=== PATIENT | male | born 1955 | race Caucasian/White ===

== ENCOUNTER 2021-06-06 15:36 | Emergency (ER) | payer MEDICAID ==
[~2021-06-06] VITALS: Ht 177.8 cm; Wt 158.6 kg
[2021-06-06 17:28] LABS: EOSINOPHILS % (AUTO) 0.5 % (0-6); HEMOGLOBIN 12.4 g/dl (14.0-17.9); MEAN PLATELET VOLUME 7.8 FL (7.4-10.4); NEUTROPHILS # (AUTO) 4.2 X10'3 (1.8-7.7); RED CELL DISTRIBUTION WIDTH 13.8 % (11.5-14.5); WHITE BLOOD COUNT 5.5 X10'3 (4.5-11.0)
[2021-06-06 17:30] LABS: BASOPHILS % (AUTO) 0.4 % (0-1); HEMATOCRIT 36.8 % (42.0-52.0); LYMPHOCYTES # (AUTO) 0.6 X10'3 (1.1-4.8); LYMPHOCYTES % (AUTO) 10.8 % (21-51); MEAN CORPUSCULAR HEMOGLOBIN 31.3 PG (27.0-31.0); MEAN CORPUSCULAR HGB CONC 33.8 g/dL (33.0-36.5); MEAN CORPUSCULAR VOLUME 92.6 FL (78-98); MONOCYTES # (AUTO) 0.6 X10'3 (0-0.9); MONOCYTES % (AUTO) 11.1 % (2-12); NEUTROPHILS % (AUTO) 77.2 % (42-75); PLATELET COUNT 131 X10'3 (140-440); RED BLOOD COUNT 3.97 X10'6 (4.70-6.10)
[2021-06-06 17:46] LABS: ALANINE AMINOTRANSFERASE 11 U/L (12-78); ALBUMIN 2.8 G/DL (3.4-5.0); ALBUMIN/GLOBULIN RATIO 0.6 (1.1-1.5); ALKALINE PHOSPHATASE 104 IU/L (46-116); ANION GAP 7 (8-16); ASPARTATE AMINO TRANSFERASE 30 U/L (10-37); BILIRUBIN,TOTAL 1.5 MG/DL (0.1-1.0); BLOOD UREA NITROGEN 11 MG/DL (7-18); BUN/CREATININE RATIO 8.8 (5.4-32.0); CALCIUM 8.7 MG/DL (8.5-10.1); CHLORIDE 104 MMOL/L (99-107); CREATININE 1.25 MG/DL (0.60-1.10); GLUCOSE 119 MG/DL (70-104); POTASSIUM 3.8 MMOL/L (3.5-5.1); SODIUM 139 MMOL/L (135-145); TOTAL CARBON DIOXIDE 28.1 MMOL/L (24-32); TOTAL PROTEIN 7.7 G/DL (6.4-8.2); eGFR 58 ML/MIN
[2021-06-07 01:20] VITALS: BP 155/78
== END 2021-06-07 01:22 | disposition home or self-care (01) ==
LOC: ER 15:36
DX: M79.604 Pain in right leg (principal); R60.1 Generalized edema; I87.8 Other specified disorders of veins; Z68.43 Body mass index [BMI] 50.0-59.9, adult
CPT/HCPCS: 36415; 73590; 80053; 84145; 85025; 85379; 93971; 99285

== ENCOUNTER 2023-02-26 22:59 | Emergency (ER) | payer MEDICAID, MEDICARE ==
[~2023-02-26] VITALS: Ht 177.8 cm; Wt 160.0 kg
[2023-02-26] MEDS ORDERED: HYDR-3965 PO (23:47)
[2023-02-26 23:58] VITALS: BP 169/72; PULSE 47; RESP 16; TEMP 98.2; O2SAT 93
[2023-02-27] MEDS ORDERED: HYDR-3965 PO (00:08)
== END 2023-02-27 00:36 | disposition home or self-care (01) ==
LOC: ER 23:00
DX: S42.391A Other fracture of shaft of right humerus, initial encounter for closed fracture (principal); W18.39XA Other fall on same level, initial encounter; Y93.89 Activity, other specified; Y92.89 Other specified places as the place of occurrence of the external cause; Y99.8 Other external cause status
CPT/HCPCS: 73030; 99283; A4565

== ENCOUNTER 2023-07-25 12:34 | Emergency (ER) | payer MEDICAID ==
[~2023-07-25] VITALS: Ht 177.8 cm; Wt 168.6 kg
[2023-07-25 15:25] LABS: EOSINOPHILS # (AUTO) 0.2 X10'3 (0-0.9); HEMOGLOBIN 11.9 g/dl (14.0-17.9); LYMPHOCYTES # (AUTO) 0.9 X10'3 (1.1-4.8); MEAN PLATELET VOLUME 8.3 FL (7.4-10.4); MONOCYTES # (AUTO) 0.5 X10'3 (0-0.9); MONOCYTES % (AUTO) 9.2 % (2-12); NEUTROPHILS # (AUTO) 3.4 X10'3 (1.8-7.7); WHITE BLOOD COUNT 4.9 X10'3 (4.5-11.0)
[2023-07-25 15:26] LABS: BASOPHILS % (AUTO) 0.5 % (0-1); EOSINOPHILS % (AUTO) 3.1 % (0-6); HEMATOCRIT 35.9 % (42.0-52.0); LYMPHOCYTES % (AUTO) 18.2 % (21-51); MEAN CORPUSCULAR HEMOGLOBIN 30.7 PG (27.0-31.0); MEAN CORPUSCULAR HGB CONC 33.2 g/dL (33.0-36.5); MEAN CORPUSCULAR VOLUME 92.3 FL (78-98); PLATELET COUNT 68 X10'3 (140-440); RED BLOOD COUNT 3.89 X10'6 (4.70-6.10); RED CELL DISTRIBUTION WIDTH 14.4 % (11.5-14.5)
[2023-07-25 15:35] LABS: APTT 26 SECONDS (22-32); INR 1.1 INR; PROTHROMBIN TIME 11.6 SECONDS (9.0-12.0)
[2023-07-25 15:39] LABS: ALANINE AMINOTRANSFERASE 10 U/L (12-78); ALBUMIN 3.1 G/DL (3.4-5.0); ALBUMIN/GLOBULIN RATIO 0.7 (1.1-1.5); ALKALINE PHOSPHATASE 81 IU/L (46-116); ANION GAP 2 (8-16); ASPARTATE AMINO TRANSFERASE 24 U/L (10-37); BLOOD UREA NITROGEN 16 MG/DL (7-18); BUN/CREATININE RATIO 13.6 (10.0-20.0); CALCIUM 8.4 MG/DL (8.5-10.1); CHLORIDE 104 MMOL/L (99-107); CREATININE 1.18 MG/DL (0.60-1.10); GLUCOSE 117 MG/DL (70-104); POTASSIUM 3.8 MMOL/L (3.5-5.1); SODIUM 139 MMOL/L (135-145); TOTAL CARBON DIOXIDE 32.9 MMOL/L (24-32); TOTAL PROTEIN 7.4 G/DL (6.4-8.2); eCRCL 62 ML/MIN; eGFR 61 ML/MIN
[2023-07-25 15:46] LABS: C-REACTIVE PROTEIN 1.21 MG/DL (0.0-0.5); PRO BRAIN NATRIURETIC PEPTIDE 924 PG/ML (0-125)
[2023-07-25] MEDS ORDERED: SULF1TAB48 PO (17:15)
[2023-07-25] MEDS ORDERED: HYDR-3965 PO (17:15)
[2023-07-25 17:33] VITALS: BP 155/88; PULSE 62; RESP 16; TEMP 98.7; O2SAT 95
== END 2023-07-25 17:34 | disposition home or self-care (01) ==
LOC: ER 12:34
DX: S90.922A Unspecified superficial injury of left foot, initial encounter (principal); X58.XXXA Exposure to other specified factors, initial encounter; Y93.89 Activity, other specified; Y92.89 Other specified places as the place of occurrence of the external cause; Y99.8 Other external cause status
CPT/HCPCS: 36415; 73620; 73700; 80053; 83605; 83880; 84145; 85025; 85610; 85651; 85730; 86140; 87040; 99284; A6223; A6446

== ENCOUNTER 2023-08-03 17:41 | Emergency (ER) | payer MEDICAID ==
[~2023-08-03] VITALS: Ht 177.8 cm; Wt 168.6 kg
[~2023-08-03 17:41] MED LIST: SULF1TAB48 PO
[2023-08-03 19:16] LABS: BASOPHILS % (AUTO) 0.7 % (0-1); EOSINOPHILS # (AUTO) 0.2 X10'3 (0-0.9); EOSINOPHILS % (AUTO) 3.9 % (0-6); LYMPHOCYTES # (AUTO) 0.9 X10'3 (1.1-4.8); LYMPHOCYTES % (AUTO) 18.1 % (21-51); MEAN CORPUSCULAR HGB CONC 33.3 g/dL (33.0-36.5); MEAN CORPUSCULAR VOLUME 92.9 FL (78-98); MEAN PLATELET VOLUME 8.5 FL (7.4-10.4); MONOCYTES # (AUTO) 0.5 X10'3 (0-0.9); MONOCYTES % (AUTO) 10.4 % (2-12); NEUTROPHILS # (AUTO) 3.3 X10'3 (1.8-7.7); NEUTROPHILS % (AUTO) 66.9 % (42-75); PLATELET COUNT 74 X10'3 (140-440); RED BLOOD COUNT 3.87 X10'6 (4.70-6.10); RED CELL DISTRIBUTION WIDTH 14.3 % (11.5-14.5); WHITE BLOOD COUNT 4.9 X10'3 (4.5-11.0)
[2023-08-03 19:32] LABS: ALANINE AMINOTRANSFERASE 9 U/L (12-78); ALBUMIN 3.2 G/DL (3.4-5.0); ALBUMIN/GLOBULIN RATIO 0.7 (1.1-1.5); ALKALINE PHOSPHATASE 94 IU/L (46-116); ANION GAP 4 (8-16); ASPARTATE AMINO TRANSFERASE 23 U/L (10-37); BILIRUBIN,TOTAL 1.4 MG/DL (0.1-1.0); BLOOD UREA NITROGEN 11 MG/DL (7-18); BUN/CREATININE RATIO 8.9 (10.0-20.0); C-REACTIVE PROTEIN 1.79 MG/DL (0.0-0.5); CALCIUM 8.1 MG/DL (8.5-10.1); CHLORIDE 103 MMOL/L (99-107); CREATININE 1.23 MG/DL (0.60-1.10); GLUCOSE 105 MG/DL (70-104); SODIUM 139 MMOL/L (135-145); TOTAL CARBON DIOXIDE 31.7 MMOL/L (24-32); TOTAL PROTEIN 7.5 G/DL (6.4-8.2); eCRCL 59 ML/MIN; eGFR 59 ML/MIN
[2023-08-03] MEDS ORDERED: DOXY-1 PO (20:32)
[2023-08-03 21:22] VITALS: BP 178/91; PULSE 61; RESP 16; TEMP 98.1; O2SAT 96
== END 2023-08-03 21:25 | disposition home or self-care (01) ==
LOC: ER 17:41
DX: L03.116 Cellulitis of left lower limb (principal); I10 Essential (primary) hypertension; Z79.2 Long term (current) use of antibiotics
CPT/HCPCS: 36415; 73630; 80053; 83605; 85025; 85651; 86140; 87040; 87070; 87077; 87186; 99284; A6258; A6446; A6449

== ENCOUNTER 2023-08-08 08:57 | Inpatient (IN) | payer MEDICAID ==
[~2023-08-08] VITALS: Ht 177.8 cm; Wt 168.6 kg
[~2023-08-08 08:57] MED LIST changes: +DOXY-1 PO; -SULF1TAB48 PO
[2023-08-08] MEDS ORDERED: iohexol 300mg/ml 100ml inj. ONE (10:03)
[2023-08-08 10:50] LABS: BASOPHILS % (AUTO) 0.6 % (0-1); EOSINOPHILS # (AUTO) 0.1 X10'3 (0-0.9); EOSINOPHILS % (AUTO) 3.5 % (0-6); HEMATOCRIT 39.5 % (42.0-52.0); HEMOGLOBIN 12.9 g/dl (14.0-17.9); LYMPHOCYTES # (AUTO) 0.4 X10'3 (1.1-4.8); LYMPHOCYTES % (AUTO) 10.1 % (21-51); MEAN CORPUSCULAR HEMOGLOBIN 30.4 PG (27.0-31.0); MEAN CORPUSCULAR HGB CONC 32.7 g/dL (33.0-36.5); MEAN CORPUSCULAR VOLUME 92.8 FL (78-98); MEAN PLATELET VOLUME 8.2 FL (7.4-10.4); MONOCYTES # (AUTO) 0.3 X10'3 (0-0.9); NEUTROPHILS # (AUTO) 3.2 X10'3 (1.8-7.7); NEUTROPHILS % (AUTO) 77.8 % (42-75); PLATELET COUNT 69 X10'3 (140-440); RED BLOOD COUNT 4.25 X10'6 (4.70-6.10); RED CELL DISTRIBUTION WIDTH 14.6 % (11.5-14.5); WHITE BLOOD COUNT 4.1 X10'3 (4.5-11.0)
[2023-08-08 10:57] LABS: ALBUMIN 3.4 G/DL (3.4-5.0); ANION GAP 7 (8-16); BLOOD UREA NITROGEN 13 MG/DL (7-18); BUN/CREATININE RATIO 10.5 (10.0-20.0); CALCIUM 8.9 MG/DL (8.5-10.1); CHLORIDE 102 MMOL/L (99-107); CREATININE 1.24 MG/DL (0.60-1.10); GLUCOSE 104 MG/DL (70-104); POTASSIUM 4.2 MMOL/L (3.5-5.1); SODIUM 140 MMOL/L (135-145); TOTAL CARBON DIOXIDE 31.3 MMOL/L (24-32); eCRCL 59 ML/MIN; eGFR 58 ML/MIN
[2023-08-08 11:09] LABS: BILIRUBIN,URINE NEGATIVE (Neg); CLARITY,URINE CLEAR (Clear); COLOR,URINE YELLOW (Yellow); GLUCOSE, URINE NEGATIVE (Neg); KETONES,URINE TRACE mg/dl (Neg); LEUKOCYTE ESTERASE ,URINE NEGATIVE (Neg); NITRITES, URINE NEGATIVE (Neg); OCCULT BLOOD,URINE NEGATIVE (Neg); PROTEIN,URINE NEGATIVE (Neg)
[2023-08-08 11:15] LABS: UA COLLECTION TYPE CLN CATCH MIDSTREAM
[2023-08-08 13:11] LABS: C-REACTIVE PROTEIN 1.49 MG/DL (0.0-0.5)
[2023-08-08] MEDS ORDERED: ondansetron/PF 4mg/2ml inj IV PRN (13:45)
[2023-08-08] MEDS ORDERED: potassium Cl 40MEQ/1/2NS 520ml 520 ML IV PRN (13:45)
[2023-08-08] MEDS ORDERED: magnesium 4gm in 100ml NS 100 ML IV PRN (13:45)
[2023-08-08] MEDS ORDERED: magnesium 2GM in 50ml NS 50 ML IV PRN (13:45)
[2023-08-08] MEDS ORDERED: potassium Cl 20 mEq SR tablet PO PRN ×2 (13:45)
[2023-08-08] MEDS ORDERED: magnesium Cl slow-release 64mg tablet PO PRN (13:45)
[2023-08-08] MEDS ORDERED: mag hydrox/Alum hydrox/simeth 30ml oral suspension PO PRN (13:45)
[2023-08-08] MEDS: vancomycin/NS 1 GM ADD-VANTAGE 250 ML IV SCH (15:50)
[2023-08-08 18:46] LABS: URINE AMPHETAMINE SCREEN NEGATIVE (Neg); URINE BARBITUATE SCREEN NEGATIVE (Neg); URINE BENZODIAZEPINES SCREEN NEGATIVE (Neg); URINE CANNABINOID SCREEN NEGATIVE (Neg); URINE COCAINE SCREEN NEGATIVE (Neg); URINE METHADONE SCREEN NEGATIVE (Neg); URINE OPIATE SCREEN POSITIVE (Neg); URINE PHENCYCLIDINE SCREEN NEGATIVE (Neg)
[2023-08-08 19:00] VITALS: RESP 14; O2SAT 93
[2023-08-08 20:00] VITALS: BP 155/75; PULSE 67; RESP 15; TEMP 98.5; O2SAT 93
[2023-08-08] MEDS: K and/or MAG REPLACEMENT MC SCH (20:00)
[2023-08-08] MEDS: heparin, porcine 5000 units/ml vial SQ SCH (20:00)
[2023-08-08 22:00] VITALS: BP 174/70; PULSE 62; RESP 20; TEMP 98; O2SAT 94
[2023-08-08] MEDS: amLODIPine 5mg tablet PO ONE (23:13)
[2023-08-09] MEDS: acetaminophen 325mg tablet PO PRN (02:24)
[2023-08-09 06:08] LABS: BASOPHILS % (AUTO) 0.6 % (0-1); EOSINOPHILS # (AUTO) 0.2 X10'3 (0-0.9); EOSINOPHILS % (AUTO) 3.8 % (0-6); HEMATOCRIT 37.2 % (42.0-52.0); HEMOGLOBIN 12.4 g/dl (14.0-17.9); LYMPHOCYTES # (AUTO) 0.8 X10'3 (1.1-4.8); LYMPHOCYTES % (AUTO) 17.6 % (21-51); MEAN CORPUSCULAR HEMOGLOBIN 30.6 PG (27.0-31.0); MEAN CORPUSCULAR HGB CONC 33.3 g/dL (33.0-36.5); MEAN CORPUSCULAR VOLUME 91.8 FL (78-98); MEAN PLATELET VOLUME 8.8 FL (7.4-10.4); MONOCYTES # (AUTO) 0.5 X10'3 (0-0.9); MONOCYTES % (AUTO) 10.3 % (2-12); NEUTROPHILS % (AUTO) 67.7 % (42-75); PLATELET COUNT 71 X10'3 (140-440); RED BLOOD COUNT 4.05 X10'6 (4.70-6.10); RED CELL DISTRIBUTION WIDTH 14.8 % (11.5-14.5); WHITE BLOOD COUNT 4.4 X10'3 (4.5-11.0)
[2023-08-09 06:40] LABS: ALBUMIN 3.1 G/DL (3.4-5.0); ANION GAP 8 (8-16); BLOOD UREA NITROGEN 11 MG/DL (7-18); BUN/CREATININE RATIO 9.6 (10.0-20.0); CALCIUM 8.8 MG/DL (8.5-10.1); CHLORIDE 105 MMOL/L (99-107); CHOL/HDL RATIO 2.4 (0.00-4.99); CHOLESTEROL 138 MG/DL (0-200); CREATININE 1.15 MG/DL (0.60-1.10); GLUCOSE 95 MG/DL (70-104); HDL CHOLESTEROL 58 MG/DL (35-60); LDL CHOLESTEROL 64 MG/DL (50-100); POTASSIUM 4.1 MMOL/L (3.5-5.1); SODIUM 141 MMOL/L (135-145); THYROID STIMULATING HORMONE 4.63 ulU/ml (0.34-4.50); TOTAL CARBON DIOXIDE 27.7 MMOL/L (24-32); TRIGLYCERIDES 62 MG/DL (20-135); eCRCL 63 ML/MIN; eGFR 63 ML/MIN
[2023-08-09 06:42] VITALS: BP 164/66; PULSE 65; RESP 22; TEMP 97.8; O2SAT 92
[2023-08-09 06:57] LABS: HEMOGLOBIN A1C 5.6 % (4.5-6.2)
[2023-08-09 08:00] VITALS: RESP 16
[2023-08-09] MEDS: furosemide 20MG tablet PO SCH (10:23)
[2023-08-09 12:19] VITALS: BP 164/74; PULSE 59; RESP 18; TEMP 97.2; O2SAT 93
[2023-08-09] MEDS: VANCOMYCIN LEVEL IV ONE (14:30)
[2023-08-09 18:50] VITALS: BP 167/62; PULSE 67; RESP 17; TEMP 97.2; O2SAT 95
[2023-08-09 22:00] VITALS: BP 115/79; PULSE 64; RESP 18; TEMP 97.8; O2SAT 91
[2023-08-10 06:00] VITALS: BP 133/76; PULSE 81; RESP 24; TEMP 98.2; O2SAT 93
[2023-08-10 06:13] LABS: BASOPHILS % (AUTO) 0.4 % (0-1); EOSINOPHILS # (AUTO) 0.2 X10'3 (0-0.9); HEMATOCRIT 36.5 % (42.0-52.0); HEMOGLOBIN 12.1 g/dl (14.0-17.9); LYMPHOCYTES # (AUTO) 0.8 X10'3 (1.1-4.8); LYMPHOCYTES % (AUTO) 18.6 % (21-51); MEAN CORPUSCULAR HEMOGLOBIN 30.7 PG (27.0-31.0); MEAN CORPUSCULAR HGB CONC 33.2 g/dL (33.0-36.5); MEAN CORPUSCULAR VOLUME 92.4 FL (78-98); MEAN PLATELET VOLUME 8.9 FL (7.4-10.4); MONOCYTES # (AUTO) 0.5 X10'3 (0-0.9); MONOCYTES % (AUTO) 10.6 % (2-12); NEUTROPHILS # (AUTO) 2.8 X10'3 (1.8-7.7); NEUTROPHILS % (AUTO) 65.4 % (42-75); PLATELET COUNT 65 X10'3 (140-440); RED BLOOD COUNT 3.95 X10'6 (4.70-6.10); RED CELL DISTRIBUTION WIDTH 14.8 % (11.5-14.5); WHITE BLOOD COUNT 4.4 X10'3 (4.5-11.0)
[2023-08-10 06:16] LABS: ANION GAP 7 (8-16); BLOOD UREA NITROGEN 9 MG/DL (7-18); BUN/CREATININE RATIO 7.4 (10.0-20.0); CALCIUM 8.9 MG/DL (8.5-10.1); CHLORIDE 105 MMOL/L (99-107); CREATININE 1.22 MG/DL (0.60-1.10); GLUCOSE 116 MG/DL (70-104); POTASSIUM 3.9 MMOL/L (3.5-5.1); SODIUM 143 MMOL/L (135-145); TOTAL CARBON DIOXIDE 31.2 MMOL/L (24-32); eCRCL 60 ML/MIN; eGFR 59 ML/MIN
[2023-08-10 08:00] VITALS: RESP 14
[2023-08-10 12:49] VITALS: BP 168/75; RESP 20; TEMP 97.8; O2SAT 93
[2023-08-10 18:30] VITALS: BP 190/77; PULSE 61; RESP 16; TEMP 98.9; O2SAT 98
[2023-08-10] MEDS: magnesium hydroxide 30ml (MOM) UD suspension PO PRN (18:55)
[2023-08-10 19:00] VITALS: RESP 16; O2SAT 98
[2023-08-10] MEDS ORDERED: LISI20TA28 PO (20:19)
[2023-08-10] MEDS: lisinopril 10 MG tablet PO ONE (20:36)
[2023-08-10 23:00] VITALS: BP 112/70; PULSE 100; RESP 20; TEMP 97.8; O2SAT 90
[2023-08-11 04:44] LABS: EOSINOPHILS # (AUTO) 0.2 X10'3 (0-0.9); EOSINOPHILS % (AUTO) 4.1 % (0-6); HEMOGLOBIN 11.8 g/dl (14.0-17.9); MEAN CORPUSCULAR HEMOGLOBIN 30.2 PG (27.0-31.0); RED CELL DISTRIBUTION WIDTH 15.1 % (11.5-14.5); WHITE BLOOD COUNT 5.3 X10'3 (4.5-11.0)
[2023-08-11 04:47] LABS: BASOPHILS % (AUTO) 0.7 % (0-1); HEMATOCRIT 36.3 % (42.0-52.0); LYMPHOCYTES % (AUTO) 18.8 % (21-51); MEAN CORPUSCULAR HGB CONC 32.6 g/dL (33.0-36.5); MEAN CORPUSCULAR VOLUME 92.7 FL (78-98); MEAN PLATELET VOLUME 8.4 FL (7.4-10.4); MONOCYTES # (AUTO) 0.5 X10'3 (0-0.9); MONOCYTES % (AUTO) 10.2 % (2-12); NEUTROPHILS # (AUTO) 3.5 X10'3 (1.8-7.7); NEUTROPHILS % (AUTO) 66.2 % (42-75); PLATELET COUNT 63 X10'3 (140-440); RED BLOOD COUNT 3.91 X10'6 (4.70-6.10)
[2023-08-11 04:54] LABS: ALBUMIN 2.9 G/DL (3.4-5.0); ANION GAP 5 (8-16); BLOOD UREA NITROGEN 11 MG/DL (7-18); BUN/CREATININE RATIO 9.5 (10.0-20.0); CALCIUM 8.6 MG/DL (8.5-10.1); CHLORIDE 105 MMOL/L (99-107); CREATININE 1.16 MG/DL (0.60-1.10); GLUCOSE 113 MG/DL (70-104); POTASSIUM 4.2 MMOL/L (3.5-5.1); SODIUM 142 MMOL/L (135-145); TOTAL CARBON DIOXIDE 32.5 MMOL/L (24-32); eCRCL 63 ML/MIN; eGFR 63 ML/MIN
[2023-08-11 06:00] VITALS: BP 123/66; PULSE 60; RESP 14; TEMP 98.9; O2SAT 87
[2023-08-11 07:00] VITALS: RESP 16; O2SAT 95
[2023-08-11] MEDS: lisinopril 10 MG tablet PO SCH (09:25)
[2023-08-11 10:00] VITALS: BP 158/70; PULSE 66; RESP 18; TEMP 98.3; O2SAT 90
[2023-08-11] MEDS ORDERED: LACT1CAP26 PO (12:28)
[2023-08-11] MEDS ORDERED: LINE600T14 PO (12:28)
[2023-08-11] MEDS ORDERED: ACET-1008 PO (12:28)
== END 2023-08-11 19:51 | disposition home or self-care (01) | DRG 383 ==
LOC: ER 08:57 → ED HOLD 13:43 → SUR 3N 19:00
PROVIDERS: ADMIT Family Medicine; ATTEND Family Medicine
DX: L03.116 Cellulitis of left lower limb (principal); D61.818 Other pancytopenia; L97.529 Non-pressure chronic ulcer of other part of left foot with unspecified severity; E66.2 Morbid (severe) obesity with alveolar hypoventilation; Z68.43 Body mass index [BMI] 50.0-59.9, adult; I10 Essential (primary) hypertension; B95.2 Enterococcus as the cause of diseases classified elsewhere
CPT/HCPCS: 36415; 71045; 73701; 80048; 80061; 80202; 80305; 81003; 83036; 83605; 83735; 84145; 84443; 85025; 85651; 86140; 87040; 87070; 87077; 87081; 87186; 93005; 93306; 97110; 97161; 97530; 99285; A4615; A6196; A6213; A6446; A6449; G0378; J3370; J3490; L3260; Q9967

== ENCOUNTER 2024-01-16 11:00 | Inpatient (IN) | payer MEDICAID, MEDICARE ==
[~2024-01-16] VITALS: Ht 172.7 cm; Wt 151.8 kg
[~2024-01-16 11:00] MED LIST changes: +ACET-1008 PO; -DOXY-1 PO; +LACT1CAP26 PO; +LINE600T14 PO; +LISI20TA28 PO; +piperacillin/tazo 4.5gm/100ml 100 ML IV SCH
[2024-01-16 11:55] LABS: BASOPHILS # (AUTO) 0.1 X10'3 (0-0.2); EOSINOPHILS # (AUTO) 0.1 X10'3 (0-0.9); HEMATOCRIT 41.3 % (42.0-52.0); HEMOGLOBIN 13.6 g/dl (14.0-17.9); LYMPHOCYTES # (AUTO) 0.8 X10'3 (1.1-4.8); LYMPHOCYTES % (AUTO) 8.2 % (21-51); MEAN CORPUSCULAR HEMOGLOBIN 31.1 PG (27.0-31.0); MEAN CORPUSCULAR VOLUME 94.2 FL (78-98); MEAN PLATELET VOLUME 9.3 FL (7.4-10.4); MONOCYTES # (AUTO) 0.4 X10'3 (0-0.9); MONOCYTES % (AUTO) 4.4 % (2-12); NEUTROPHILS # (AUTO) 8.5 X10'3 (1.8-7.7); NEUTROPHILS % (AUTO) 85.4 % (42-75); PLATELET COUNT 84 X10'3 (140-440); RED BLOOD COUNT 4.39 X10'6 (4.70-6.10); RED CELL DISTRIBUTION WIDTH 14.9 % (11.5-14.5); WHITE BLOOD COUNT 9.9 X10'3 (4.5-11.0)
[2024-01-16 12:09] LABS: ALANINE AMINOTRANSFERASE 15 U/L (12-78); ALBUMIN 3.4 G/DL (3.4-5.0); ALBUMIN/GLOBULIN RATIO 0.7 (1.1-1.5); ALKALINE PHOSPHATASE 92 IU/L (46-116); ANION GAP 5 (8-16); ASPARTATE AMINO TRANSFERASE 33 U/L (10-37); BILIRUBIN,TOTAL 2.5 MG/DL (0.1-1.0); BLOOD UREA NITROGEN 14 MG/DL (7-18); BUN/CREATININE RATIO 10.6 (10.0-20.0); CALCIUM 9.1 MG/DL (8.5-10.1); CHLORIDE 103 MMOL/L (99-107); CREATININE 1.32 MG/DL (0.60-1.10); GLUCOSE 128 MG/DL (70-104); LIPASE 44 U/L (16-77); POTASSIUM 3.8 MMOL/L (3.5-5.1); SODIUM 140 MMOL/L (135-145); TOTAL CARBON DIOXIDE 31.7 MMOL/L (24-32); TOTAL PROTEIN 8.4 G/DL (6.4-8.2); eCRCL 55 ML/MIN; eGFR 54 ML/MIN
[2024-01-16 13:43] LABS: BILIRUBIN,URINE NEGATIVE (Neg); CLARITY,URINE CLEAR (Clear); COLOR,URINE YELLOW (Yellow); GLUCOSE, URINE NEGATIVE (Neg); KETONES,URINE NEGATIVE (Neg); LEUKOCYTE ESTERASE ,URINE NEGATIVE (Neg); NITRITES, URINE NEGATIVE (Neg); OCCULT BLOOD,URINE NEGATIVE (Neg); PROTEIN,URINE TRACE mg/dl (Neg)
[2024-01-16 14:06] LABS: UA COLLECTION TYPE CLN CATCH MIDSTREAM
[2024-01-16 14:07] LABS: BACTERIA,URINE NONE SEEN /HPF (Neg); RBC,URINE 0-2 /HPF (0-2); WBC,URINE 0-4 /HPF (0-4)
[2024-01-16 14:08] LABS: MUCUS STRANDS NONE SEEN /LPF (Neg); SQUAMOUS EPITHELIAL CELL,UR FEW /LPF (FEW)
[2024-01-16 14:57] LABS: PRO BRAIN NATRIURETIC PEPTIDE 410 PG/ML (0-125)
[2024-01-16 15:19] LABS: BASOPHILS % (AUTO) 0.2 % (0-1); EOSINOPHILS % (AUTO) 0.1 % (0-6); HEMATOCRIT 39.2 % (42.0-52.0); HEMOGLOBIN 13.1 g/dl (14.0-17.9); LYMPHOCYTES # (AUTO) 0.4 X10'3 (1.1-4.8); LYMPHOCYTES % (AUTO) 3.1 % (21-51); MEAN CORPUSCULAR HEMOGLOBIN 31.1 PG (27.0-31.0); MEAN CORPUSCULAR HGB CONC 33.4 g/dL (33.0-36.5); MEAN CORPUSCULAR VOLUME 93.2 FL (78-98); MEAN PLATELET VOLUME 9.5 FL (7.4-10.4); MONOCYTES # (AUTO) 0.6 X10'3 (0-0.9); MONOCYTES % (AUTO) 4.8 % (2-12); NEUTROPHILS # (AUTO) 12.3 X10'3 (1.8-7.7); NEUTROPHILS % (AUTO) 91.8 % (42-75); PLATELET COUNT 74 X10'3 (140-440); RED BLOOD COUNT 4.21 X10'6 (4.70-6.10); RED CELL DISTRIBUTION WIDTH 14.5 % (11.5-14.5); WHITE BLOOD COUNT 13.3 X10'3 (4.5-11.0)
[2024-01-16] MEDS ORDERED: magnesium sulf-water 2g/50mL 50 ML IV PRN (15:35)
[2024-01-16] MEDS ORDERED: potassium Cl 40MEQ/1/2NS 520ml 520 ML IV PRN (15:35)
[2024-01-16] MEDS ORDERED: potassium Cl 20 mEq SR tablet PO PRN ×2 (15:35)
[2024-01-16] MEDS ORDERED: magnesium hydroxide 30ml (MOM) UD suspension PO PRN (15:35)
[2024-01-16] MEDS ORDERED: ondansetron/PF 4mg/2ml inj IV PRN (15:35)
[2024-01-16] MEDS ORDERED: mag hydrox/Alum hydrox/simeth 30ml oral suspension PO PRN (15:35)
[2024-01-16] MEDS ORDERED: magnesium Cl slow-release 64mg tablet PO PRN (15:35)
[2024-01-16] MEDS ORDERED: magnesium sulf-water 4G/100mL 100 ML IV PRN (15:35)
[2024-01-16] MEDS: vancomycin/NS 1 GM ADD-VANTAGE 250 ML X 1 DOSE IV ONE (15:50)
[2024-01-16] MEDS: piperacillin/tazo 3.375gm/50ml 50 ML IV ONE (15:50)
[2024-01-16] MEDS: docusate sod 100mg capsule PO SCH (20:00)
[2024-01-16] MEDS ORDERED: heparin, porcine 5000 units/ml vial SQ SCH (20:00)
[2024-01-16] MEDS: fluconazole 150mg tablet PO ONE (20:06)
[2024-01-16 20:08] LABS: BILIRUBIN,URINE NEGATIVE (Neg); CLARITY,URINE CLEAR (Clear); COLOR,URINE YELLOW (Yellow); GLUCOSE, URINE NEGATIVE (Neg); KETONES,URINE NEGATIVE (Neg); LEUKOCYTE ESTERASE ,URINE NEGATIVE (Neg); NITRITES, URINE NEGATIVE (Neg); OCCULT BLOOD,URINE NEGATIVE (Neg); PH,URINE 7.5 (4.8-8.0); PROTEIN,URINE NEGATIVE (Neg)
[2024-01-16 20:12] LABS: UA COLLECTION TYPE URINAL
[2024-01-16] MEDS: K and/or MAG REPLACEMENT MC SCH (20:55)
[2024-01-16 22:45] VITALS: BP 169/77; PULSE 78; RESP 15; RESP 16; TEMP 98.2; O2SAT 98
[2024-01-16] MEDS: hydrALAZINE 20mg/ml inj. IV PRN (23:18)
[2024-01-16] MEDS: nystatin 15 GM powder TP SCH (23:26)
[2024-01-16] MEDS: acetaminophen 325mg tablet PO PRN (23:47)
[2024-01-17] MEDS: piperacillin/tazo 4.5gm/100ml 100 ML IV SCH
[2024-01-17] MEDS: vancomycin/NS 1 GM ADD-VANTAGE 250 ML IV SCH (01:00)
[2024-01-17] MEDS: acetaminophen 325mg tablet PO PRN (03:12)
[2024-01-17 06:19] LABS: BASOPHILS % (AUTO) 0.1 % (0-1); EOSINOPHILS % (AUTO) 0.2 % (0-6); HEMOGLOBIN 12.5 g/dl (14.0-17.9); LYMPHOCYTES # (AUTO) 0.9 X10'3 (1.1-4.8); LYMPHOCYTES % (AUTO) 7.1 % (21-51); MEAN CORPUSCULAR HEMOGLOBIN 30.9 PG (27.0-31.0); MEAN CORPUSCULAR HGB CONC 32.8 g/dL (33.0-36.5); MEAN CORPUSCULAR VOLUME 94.1 FL (78-98); MEAN PLATELET VOLUME 9.1 FL (7.4-10.4); MONOCYTES # (AUTO) 0.9 X10'3 (0-0.9); MONOCYTES % (AUTO) 7.5 % (2-12); NEUTROPHILS # (AUTO) 10.3 X10'3 (1.8-7.7); NEUTROPHILS % (AUTO) 85.1 % (42-75); PLATELET COUNT 68 X10'3 (140-440); RED BLOOD COUNT 4.04 X10'6 (4.70-6.10); RED CELL DISTRIBUTION WIDTH 14.9 % (11.5-14.5); WHITE BLOOD COUNT 12.2 X10'3 (4.5-11.0)
[2024-01-17 06:25] LABS: ALBUMIN 2.8 G/DL (3.4-5.0); ANION GAP 5 (8-16); BLOOD UREA NITROGEN 16 MG/DL (7-18); BUN/CREATININE RATIO 12.9 (10.0-20.0); CALCIUM 8.7 MG/DL (8.5-10.1); CHLORIDE 105 MMOL/L (99-107); CREATININE 1.24 MG/DL (0.60-1.10); GLUCOSE 139 MG/DL (70-104); POTASSIUM 3.6 MMOL/L (3.5-5.1); SODIUM 139 MMOL/L (135-145); eCRCL 54 ML/MIN; eGFR 58 ML/MIN
[2024-01-17 07:31] VITALS: BP 144/65; PULSE 58; RESP 16; TEMP 97.5; O2SAT 98
[2024-01-17 08:00] VITALS: RESP 16; O2SAT 98
[2024-01-17 11:00] VITALS: BP 127/85; PULSE 78; RESP 20; TEMP 98.7; O2SAT 96
[2024-01-17] MEDS: VANCOMYCIN LEVEL IV ONE (15:30)
[2024-01-17 18:00] VITALS: BP 176/68; PULSE 75; RESP 18; TEMP 98.7; O2SAT 95
[2024-01-17 20:00] VITALS: BP 168/68; PULSE 65; RESP 18; O2SAT 96
[2024-01-17 22:08] VITALS: BP 159/88; PULSE 87; RESP 20; TEMP 98.5; O2SAT 96
[2024-01-18 02:00] VITALS: BP 146/72; PULSE 80; RESP 20; TEMP 98.2; O2SAT 95
[2024-01-18 06:59] LABS: ALBUMIN 2.7 G/DL (3.4-5.0); ANION GAP 7 (8-16); BLOOD UREA NITROGEN 15 MG/DL (7-18); BUN/CREATININE RATIO 11.6 (10.0-20.0); CALCIUM 8.9 MG/DL (8.5-10.1); CHLORIDE 104 MMOL/L (99-107); CREATININE 1.29 MG/DL (0.60-1.10); GLUCOSE 135 MG/DL (70-104); POTASSIUM 3.9 MMOL/L (3.5-5.1); SODIUM 140 MMOL/L (135-145); TOTAL CARBON DIOXIDE 28.7 MMOL/L (24-32); eCRCL 52 ML/MIN; eGFR 55 ML/MIN
[2024-01-18 07:04] VITALS: BP 180/90; PULSE 73; RESP 20; TEMP 98.2; O2SAT 95
[2024-01-18 08:00] VITALS: RESP 16; O2SAT 96
[2024-01-18] MEDS: lisinopril 10 MG tablet PO SCH (08:00)
[2024-01-18 11:00] VITALS: BP 148/79; PULSE 105; RESP 20; TEMP 98.2; O2SAT 95
[2024-01-18 12:11] LABS: BASOPHILS % 0 % (0-2); EOSINOPHILS # (AUTO) 0.2 X10'3 (0-0.9); EOSINOPHILS % (AUTO) 2 % (0-5); HEMATOCRIT 36.7 % (43.5-53.7); HEMOGLOBIN 12.4 G/DL (12.5-16.3); LYMPHOCYTES # (AUTO) 0.9 X10'3 (0.6-4.1); LYMPHOCYTES % 11 % (24-44); MEAN CORPUSCULAR HEMOGLOBIN 31.4 PG (27-31.2); MEAN CORPUSCULAR HGB CONC 33.9 % (32-36); MEAN CORPUSCULAR VOLUME 92.8 FL (81-97); MONOCYTES # (AUTO) 0.8 X10'3 (0-0.9); MONOCYTES % 9 % (0-12); NEUTROPHILS # (AUTO) 6.7 X10'3 (>=1.4); PLATELET COUNT 64 X10'3 (130-400); RED BLOOD COUNT 3.95 X10'6 (4.30-5.90); RED CELL DISTRIBUTION WIDTH 14.6 % (11-16); SEGMENTED NEUTROPHILS % 78 % (36-66); WHITE BLOOD COUNT 8.6 X10'3 (4.5-11.0)
[2024-01-18 17:45] LABS: MAGNESIUM 1.8 MG/DL (1.5-2.4)
[2024-01-18 18:00] VITALS: BP 187/99; PULSE 106; RESP 22; TEMP 97.7; O2SAT 95
[2024-01-18 20:00] VITALS: RESP 22; O2SAT 95
[2024-01-18] MEDS: magnesium sulf-water 2g/50mL 50 ML IV ONE (20:31)
[2024-01-19] VITALS (7 sets, daily range): BP systolic 154–184; BP diastolic 89–99; PULSE 78–106; RESP 16–25; TEMP 97.3–98.7; O2SAT 93–97
[2024-01-19 05:54] LABS: BASOPHILS % (AUTO) 0.3 % (0-1); EOSINOPHILS # (AUTO) 0.2 X10'3 (0-0.9); EOSINOPHILS % (AUTO) 3.7 % (0-6); HEMATOCRIT 38.6 % (42.0-52.0); HEMOGLOBIN 12.8 g/dl (14.0-17.9); LYMPHOCYTES # (AUTO) 0.8 X10'3 (1.1-4.8); LYMPHOCYTES % (AUTO) 11.3 % (21-51); MEAN CORPUSCULAR HGB CONC 33.1 g/dL (33.0-36.5); MEAN CORPUSCULAR VOLUME 93.9 FL (78-98); MEAN PLATELET VOLUME 9.2 FL (7.4-10.4); MONOCYTES # (AUTO) 0.6 X10'3 (0-0.9); MONOCYTES % (AUTO) 8.5 % (2-12); NEUTROPHILS # (AUTO) 5.1 X10'3 (1.8-7.7); NEUTROPHILS % (AUTO) 76.2 % (42-75); PLATELET COUNT 71 X10'3 (140-440); RED BLOOD COUNT 4.11 X10'6 (4.70-6.10); RED CELL DISTRIBUTION WIDTH 14.5 % (11.5-14.5); WHITE BLOOD COUNT 6.7 X10'3 (4.5-11.0)
[2024-01-19 06:14] LABS: ALBUMIN 2.7 G/DL (3.4-5.0); ANION GAP 7 (8-16); BLOOD UREA NITROGEN 13 MG/DL (7-18); BUN/CREATININE RATIO 11.4 (10.0-20.0); CHLORIDE 105 MMOL/L (99-107); CREATININE 1.14 MG/DL (0.60-1.10); GLUCOSE 143 MG/DL (70-104); MAGNESIUM 2.2 MG/DL (1.5-2.4); POTASSIUM 3.9 MMOL/L (3.5-5.1); SODIUM 139 MMOL/L (135-145); TOTAL CARBON DIOXIDE 27.2 MMOL/L (24-32); eCRCL 59 ML/MIN; eGFR 64 ML/MIN
[2024-01-19] MEDS: apixaban 5mg tablet PO SCH (19:33)
[2024-01-19] MEDS: linezolid 600mg tablet PO SCH (19:33)
[2024-01-20] VITALS (10 sets, daily range): BP systolic 140–170; BP diastolic 79–101; PULSE 59–111; RESP 18–23; TEMP 97.2–97.7; O2SAT 93–98
[2024-01-20 06:21] LABS: BASOPHILS % (AUTO) 0.5 % (0-1); EOSINOPHILS # (AUTO) 0.3 X10'3 (0-0.9); EOSINOPHILS % (AUTO) 5.6 % (0-6); HEMATOCRIT 39.4 % (42.0-52.0); HEMOGLOBIN 13.2 g/dl (14.0-17.9); LYMPHOCYTES # (AUTO) 0.9 X10'3 (1.1-4.8); LYMPHOCYTES % (AUTO) 15.4 % (21-51); MEAN CORPUSCULAR HEMOGLOBIN 31.4 PG (27.0-31.0); MEAN CORPUSCULAR HGB CONC 33.6 g/dL (33.0-36.5); MEAN CORPUSCULAR VOLUME 93.5 FL (78-98); MEAN PLATELET VOLUME 9.2 FL (7.4-10.4); MONOCYTES # (AUTO) 0.5 X10'3 (0-0.9); MONOCYTES % (AUTO) 9.7 % (2-12); NEUTROPHILS # (AUTO) 3.9 X10'3 (1.8-7.7); NEUTROPHILS % (AUTO) 68.8 % (42-75); PLATELET COUNT 83 X10'3 (140-440); RED BLOOD COUNT 4.22 X10'6 (4.70-6.10); RED CELL DISTRIBUTION WIDTH 14.6 % (11.5-14.5); WHITE BLOOD COUNT 5.6 X10'3 (4.5-11.0)
[2024-01-20 06:46] LABS: ALBUMIN 2.6 G/DL (3.4-5.0); ANION GAP 6 (8-16); BLOOD UREA NITROGEN 14 MG/DL (7-18); BUN/CREATININE RATIO 13.5 (10.0-20.0); CALCIUM 9.1 MG/DL (8.5-10.1); CHLORIDE 105 MMOL/L (99-107); CREATININE 1.04 MG/DL (0.60-1.10); GLUCOSE 125 MG/DL (70-104); MAGNESIUM 1.9 MG/DL (1.5-2.4); POTASSIUM 3.9 MMOL/L (3.5-5.1); SODIUM 139 MMOL/L (135-145); TOTAL CARBON DIOXIDE 27.9 MMOL/L (24-32); eCRCL 65 ML/MIN; eGFR 71 ML/MIN
[2024-01-21 02:00] VITALS: BP 159/99; PULSE 70; RESP 22; TEMP 98.7; O2SAT 94
[2024-01-21 06:00] VITALS: BP 151/88; PULSE 102; RESP 25; TEMP 98.2; O2SAT 97
[2024-01-21 06:21] LABS: BASOPHILS % (AUTO) 0.7 % (0-1); EOSINOPHILS # (AUTO) 0.3 X10'3 (0-0.9); EOSINOPHILS % (AUTO) 6.1 % (0-6); HEMOGLOBIN 12.8 g/dl (14.0-17.9); LYMPHOCYTES # (AUTO) 0.8 X10'3 (1.1-4.8); LYMPHOCYTES % (AUTO) 16.3 % (21-51); MEAN CORPUSCULAR HEMOGLOBIN 30.5 PG (27.0-31.0); MEAN CORPUSCULAR HGB CONC 32.8 g/dL (33.0-36.5); MEAN CORPUSCULAR VOLUME 93.2 FL (78-98); MEAN PLATELET VOLUME 8.9 FL (7.4-10.4); MONOCYTES # (AUTO) 0.5 X10'3 (0-0.9); MONOCYTES % (AUTO) 10.1 % (2-12); NEUTROPHILS # (AUTO) 3.4 X10'3 (1.8-7.7); NEUTROPHILS % (AUTO) 66.8 % (42-75); PLATELET COUNT 84 X10'3 (140-440); RED BLOOD COUNT 4.18 X10'6 (4.70-6.10); RED CELL DISTRIBUTION WIDTH 14.8 % (11.5-14.5); WHITE BLOOD COUNT 5.1 X10'3 (4.5-11.0)
[2024-01-21 06:30] LABS: ALBUMIN 2.6 G/DL (3.4-5.0); ANION GAP 5 (8-16); BLOOD UREA NITROGEN 14 MG/DL (7-18); BUN/CREATININE RATIO 12.2 (10.0-20.0); CALCIUM 9.1 MG/DL (8.5-10.1); CHLORIDE 104 MMOL/L (99-107); CREATININE 1.15 MG/DL (0.60-1.10); GLUCOSE 125 MG/DL (70-104); MAGNESIUM 2.1 MG/DL (1.5-2.4); POTASSIUM 4.1 MMOL/L (3.5-5.1); SODIUM 138 MMOL/L (135-145); TOTAL CARBON DIOXIDE 29.2 MMOL/L (24-32); eCRCL 59 ML/MIN; eGFR 63 ML/MIN
[2024-01-21 08:00] VITALS: RESP 25; O2SAT 97
[2024-01-21 11:00] VITALS: BP 148/77; PULSE 77; RESP 20; TEMP 98.1; O2SAT 95
[2024-01-21 15:00] VITALS: BP 161/87; PULSE 102; RESP 15; TEMP 98.2; O2SAT 96
[2024-01-21 16:52] VITALS: PULSE 78; RESP 16; O2SAT 95
== END 2024-01-21 18:02 | DRG 872 ==
LOC: ER 11:01 → ED HOLD 15:50 → PCU 3S 22:45
PROVIDERS: ADMIT Family Medicine; ATTEND Family Medicine
PROC: 5A09357 Assistance with Respiratory Ventilation, Less than 24 Consecutive Hours, Continuous Positive Airway Pressure (ICD-10-PCS; principal; 2024-01-20)
DX: A41.81 Sepsis due to Enterococcus (principal); L03.116 Cellulitis of left lower limb; E66.2 Morbid (severe) obesity with alveolar hypoventilation; Z68.43 Body mass index [BMI] 50.0-59.9, adult; I48.92 Unspecified atrial flutter; Z59.02 Unsheltered homelessness; E44.1 Mild protein-calorie malnutrition; I89.0 Lymphedema, not elsewhere classified; L30.4 Erythema intertrigo; B96.89 Other specified bacterial agents as the cause of diseases classified elsewhere; D69.6 Thrombocytopenia, unspecified; I10 Essential (primary) hypertension; F40.240 Claustrophobia; I48.0 Paroxysmal atrial fibrillation; I49.5 Sick sinus syndrome; J45.909 Unspecified asthma, uncomplicated; I87.2 Venous insufficiency (chronic) (peripheral)
CPT/HCPCS: 36415; 71045; 80048; 80053; 80202; 81001; 81003; 83605; 83690; 83735; 83880; 84145; 85025; 87040; 87077; 87081; 87186; 93005; 93971; 94660; 94760; 96365; 96367; 97116; 97161; 97530; 99285; A4620; A6154; A6196; A6213; A6446; A6449; G0378; J0360; J2543; J3370; J7040

== ENCOUNTER 2024-04-16 01:15 | Inpatient (IN) | payer MEDICARE, MEDICAID ==
[2024-04-16] VITALS (17 sets, daily range): BP systolic 88–153; BP diastolic 47–91; PULSE 56–83; RESP 15–20; TEMP 97.6–98.4; O2SAT 94–98
[~2024-04-16] VITALS: Ht 177.8 cm; Wt 141.9 kg
[~2024-04-16 01:15] MED LIST changes: -ACET-1008 PO; -LACT1CAP26 PO; -LINE600T14 PO; -piperacillin/tazo 4.5gm/100ml 100 ML IV SCH
[2024-04-16] MEDS: nitroGLYCERIN 0.2mg/hour patch TD ONE (01:47)
[2024-04-16 01:53] LABS: BASOPHILS % (AUTO) 0.5 % (0-1); EOSINOPHILS # (AUTO) 0.2 X10'3 (0-0.9); EOSINOPHILS % (AUTO) 4.1 % (0-6); HEMATOCRIT 38.7 % (42.0-52.0); HEMOGLOBIN 12.9 g/dl (14.0-17.9); LYMPHOCYTES % (AUTO) 18.5 % (21-51); MEAN CORPUSCULAR HEMOGLOBIN 30.9 PG (27.0-31.0); MEAN CORPUSCULAR HGB CONC 33.4 g/dL (33.0-36.5); MEAN CORPUSCULAR VOLUME 92.6 FL (78-98); MONOCYTES # (AUTO) 0.6 X10'3 (0-0.9); MONOCYTES % (AUTO) 10.9 % (2-12); NEUTROPHILS # (AUTO) 3.7 X10'3 (1.8-7.7); PLATELET COUNT 84 X10'3 (140-440); RED BLOOD COUNT 4.18 X10'6 (4.70-6.10); RED CELL DISTRIBUTION WIDTH 14.9 % (11.5-14.5); WHITE BLOOD COUNT 5.6 X10'3 (4.5-11.0)
[2024-04-16 02:04] LABS: APTT 25 SECONDS (22-32); INR 1.1 INR; PROTHROMBIN TIME 11.4 SECONDS (9.0-12.0)
[2024-04-16 02:15] LABS: ALBUMIN 3.1 G/DL (3.4-5.0); ANION GAP 4 (8-16); BLOOD UREA NITROGEN 21 MG/DL (7-18); CHLORIDE 104 MMOL/L (99-107); GLUCOSE 161 MG/DL (70-104); POTASSIUM 3.7 MMOL/L (3.5-5.1); PRO BRAIN NATRIURETIC PEPTIDE 455 PG/ML (0-125); SODIUM 141 MMOL/L (135-145); TOTAL CARBON DIOXIDE 32.6 MMOL/L (24-32); eCRCL 48 ML/MIN; eGFR 46 ML/MIN
[2024-04-16] MEDS ORDERED: LISI10TA27 PO (04:00)
[2024-04-16] MEDS ORDERED: APIX5TAB3 PO (04:00)
[2024-04-16] MEDS: ketorolac trometh 15mg/ml vial 15 MG/ML ML IV ONE (04:02)
[2024-04-16] MEDS: furosemide 10 MG/1 ML 10ml inj IV ONE (04:03)
[2024-04-16] MEDS ORDERED: HYDROcodone/acetaminophen 5mg/325mg tablet PO PRN (04:40)
[2024-04-16] MEDS ORDERED: potassium Cl 40MEQ/1/2NS 520ml 520 ML IV PRN (04:40)
[2024-04-16] MEDS ORDERED: mag hydrox/Alum hydrox/simeth 30ml oral suspension PO PRN (04:40)
[2024-04-16] MEDS ORDERED: ondansetron/PF 4mg/2ml inj IV PRN (04:40)
[2024-04-16] MEDS ORDERED: potassium Cl 20 mEq SR tablet PO PRN ×2 (04:40)
[2024-04-16] MEDS ORDERED: magnesium sulf-water 4G/100mL 100 ML IV PRN (04:40)
[2024-04-16] MEDS ORDERED: magnesium Cl slow-release 64mg tablet PO PRN (04:40)
[2024-04-16] MEDS ORDERED: magnesium sulf-water 2g/50mL 50 ML IV PRN (04:40)
[2024-04-16] MEDS ORDERED: acetaminophen 325mg tablet PO PRN (04:40)
[2024-04-16] MEDS ORDERED: ipratropium/albuterol 3ml nebule NEB PRN (05:10)
[2024-04-16 07:32] LABS: BILIRUBIN,URINE NEGATIVE (Neg); CLARITY,URINE CLEAR (Clear); COLOR,URINE YELLOW (Yellow); GLUCOSE, URINE NEGATIVE (Neg); KETONES,URINE NEGATIVE (Neg); LEUKOCYTE ESTERASE ,URINE NEGATIVE (Neg); NITRITES, URINE NEGATIVE (Neg); OCCULT BLOOD,URINE NEGATIVE (Neg); PH,URINE 5.5 (4.8-8.0); PROTEIN,URINE NEGATIVE (Neg); UROBILINOGEN,URINE 0.2 E.U/dL (0.2-1.0)
[2024-04-16 07:39] LABS: UA COLLECTION TYPE CLN CATCH MIDSTREAM
[2024-04-16] MEDS: albuterol 2.5 MG/3 ML nebule NEB SCH (08:00)
[2024-04-16] MEDS ORDERED: furosemide 10 MG/1 ML 10ml inj IV SCH (08:00)
[2024-04-16] MEDS: K and/or MAG REPLACEMENT MC SCH (08:00)
[2024-04-16] MEDS ORDERED: HYDR12.55 PO (08:02)
[2024-04-16] MEDS ORDERED: LISI5TAB22 PO (08:02)
[2024-04-16] MEDS: apixaban 5mg tablet PO SCH (10:17)
[2024-04-16] MEDS: lisinopril 10 MG tablet PO SCH (10:21)
[2024-04-16] MEDS: furosemide 40mg/4ml inj IV SCH (10:22)
[2024-04-16] MEDS ORDERED: metoprolol tartrate 1mg/ml inj IV PRN (11:10)
[2024-04-16] MEDS ORDERED: aminophylline 250mg/10ml inj. IV PRN (11:10)
[2024-04-16] MEDS ORDERED: nitroGLYCERIN 0.4mg SUBLingual tab SL PRN (11:10)
[2024-04-16 11:40] LABS: D-DIMER 0.36 MG/L FEU (0-0.50)
[2024-04-16 11:42] LABS: PHOSPHORUS 3.4 MG/DL (2.3-4.5)
[2024-04-16] MEDS: regadenoson 0.4mg/5ml syringe IV PRN (14:54)
[2024-04-16 15:39] LABS: URINE AMPHETAMINE SCREEN NEGATIVE (Neg); URINE BARBITUATE SCREEN NEGATIVE (Neg); URINE BENZODIAZEPINES SCREEN NEGATIVE (Neg); URINE CANNABINOID SCREEN NEGATIVE (Neg); URINE COCAINE SCREEN NEGATIVE (Neg); URINE METHADONE SCREEN NEGATIVE (Neg); URINE OPIATE SCREEN NEGATIVE (Neg); URINE PHENCYCLIDINE SCREEN NEGATIVE (Neg)
[2024-04-16] MEDS: furosemide 10 MG/1 ML 10ml inj IV SCH (20:18)
[2024-04-16] MEDS: acetaminophen 325mg tablet PO PRN (23:13)
[2024-04-17 06:00] VITALS: BP 115/60; PULSE 74; RESP 22; TEMP 97.4; O2SAT 100
[2024-04-17 07:39] VITALS: PULSE 60; RESP 16; O2SAT 94
[2024-04-17 08:23] LABS: BASOPHILS % (AUTO) 0.6 % (0-1); EOSINOPHILS # (AUTO) 0.3 X10'3 (0-0.9); EOSINOPHILS % (AUTO) 5.5 % (0-6); HEMATOCRIT 39.1 % (42.0-52.0); HEMOGLOBIN 12.7 g/dl (14.0-17.9); LYMPHOCYTES # (AUTO) 1.1 X10'3 (1.1-4.8); LYMPHOCYTES % (AUTO) 23.6 % (21-51); MEAN CORPUSCULAR HEMOGLOBIN 30.3 PG (27.0-31.0); MEAN CORPUSCULAR HGB CONC 32.5 g/dL (33.0-36.5); MEAN CORPUSCULAR VOLUME 93.2 FL (78-98); MEAN PLATELET VOLUME 9.6 FL (7.4-10.4); MONOCYTES # (AUTO) 0.5 X10'3 (0-0.9); MONOCYTES % (AUTO) 10.1 % (2-12); NEUTROPHILS # (AUTO) 2.9 X10'3 (1.8-7.7); NEUTROPHILS % (AUTO) 60.2 % (42-75); PLATELET COUNT 81 X10'3 (140-440); RED CELL DISTRIBUTION WIDTH 15.1 % (11.5-14.5); WHITE BLOOD COUNT 4.8 X10'3 (4.5-11.0)
[2024-04-17 08:30] LABS: INR 1.1 INR; PROTHROMBIN TIME 11.6 SECONDS (9.0-12.0)
[2024-04-17 08:33] LABS: ALBUMIN 3.2 G/DL (3.4-5.0); ANION GAP 3 (8-16); BLOOD UREA NITROGEN 23 MG/DL (7-18); BUN/CREATININE RATIO 14.5 (10.0-20.0); CALCIUM 8.9 MG/DL (8.5-10.1); CHLORIDE 99 MMOL/L (99-107); CREATININE 1.59 MG/DL (0.60-1.10); GLUCOSE 119 MG/DL (70-104); MAGNESIUM 2.1 MG/DL (1.5-2.4); PHOSPHORUS 4.7 MG/DL (2.3-4.5); POTASSIUM 3.9 MMOL/L (3.5-5.1); SODIUM 137 MMOL/L (135-145); TOTAL CARBON DIOXIDE 35.1 MMOL/L (24-32); eCRCL 45 ML/MIN; eGFR 43 ML/MIN
[2024-04-17 10:00] VITALS: BP 111/48; PULSE 77; RESP 18; TEMP 98.5; O2SAT 96
== END 2024-04-17 16:49 | disposition home or self-care (01) | DRG 291 ==
LOC: ER 01:16 → ED HOLD 04:48 → ORTHO 4S 07:19
PROVIDERS: ADMIT Internal Medicine Pulmonary Disease; ATTEND Family Medicine
PROC: 4A02XM4 Measurement of Cardiac Total Activity, External Approach (ICD-10-PCS; principal; 2024-04-16)
PROC: 3E033HZ Introduction of Radioactive Substance into Peripheral Vein, Percutaneous Approach (ICD-10-PCS; 2024-04-16)
DX: I11.0 Hypertensive heart disease with heart failure (principal); I50.33 Acute on chronic diastolic (congestive) heart failure; N17.9 Acute kidney failure, unspecified; E46 Unspecified protein-calorie malnutrition; Z59.02 Unsheltered homelessness; Z68.41 Body mass index [BMI] 40.0-44.9, adult; I20.9 Angina pectoris, unspecified; I48.0 Paroxysmal atrial fibrillation; J45.909 Unspecified asthma, uncomplicated; E66.01 Morbid (severe) obesity due to excess calories; G47.33 Obstructive sleep apnea (adult) (pediatric)
CPT/HCPCS: 36415; 71045; 78452; 80048; 80305; 81003; 83605; 83690; 83735; 83880; 84100; 84145; 84484; 85025; 85379; 85610; 85730; 87040; 87081; 93005; 93017; 94640; 94760; 96374; 96375; 97116; 97161; 99285; A9500; G0378; J1885; J1940; J2785

== ENCOUNTER 2025-01-21 12:55 | Emergency (ER) | payer MEDICARE, MEDICAID ==
[~2025-01-21] VITALS: Ht 177.8 cm; Wt 136.1 kg
[~2025-01-21 12:55] MED LIST changes: +APIX5TAB3 PO; +HYDR12.55 PO; +LISI10TA27 PO; -LISI20TA28 PO; +LISI5TAB22 PO
[2025-01-21 13:03] VITALS: BP 152/67; PULSE 65; RESP 18; O2SAT 94
--- NOTE | 2025-01-21 17:20 | Physician Documentation ---
History of Present Illness ~ Chief Complaint: Eye Pain Stated Complaint: EYE PAIN Time Seen by MD: 16:33 Primary Medical Doctor: [facility] Patient is a 69-year-old gentleman that presents to emergency room for evaluation of his right eye. Patient reports that when he woke up he felt like he had something in his eye on the lateral edge. Reports that his vision was slightly burn blurry but his vision has improved and is at his baseline now. Patient reports he has a history of styes but has not had 1 in many years. Patient denies any drainage or knowledge of anything getting into his eye. Medication Reconciliation Allergies: Coded Allergies: No Known Allergies (Unverified , 01/21/25) Scheduled Apixaban (Eliquis), 1 TAB PO BID, (Reported) Hydrochlorothiazide (Hydrochlorothiazide), 1 TAB PO DAILY, (Reported) Lisinopril (Lisinopril), 1 TAB PO DAILY, (Reported) Lisinopril (Lisinopril), 1 TAB PO HS, (Reported) Past Medical History Past Medical History: *CARDIOVASCULAR*, Hypertension, *MUSCULOSKELETAL*, Cellulitis Past Surgical History: noncontributory Patient History: Patient reports no known family medical history. Alcohol Use: None Drug Use: none Lives with: Alone Lives In: Homeless Occupation: unemployed Review of Systems ROS As stated above in the HPI, otherwise all systems are reviewed and negative. Physical Exam Vital Signs: Temperature: 98.7, Source: Oral, Heart Rate: 65, Respiratory Rate: 18, BP: 152/67, Pulse Oximetry: 94, Weight: 136.050 Oxygen Flow Rate: 0 Physical Exam VITALS: Reviewed and as above. GENERAL: Alert, no apparent distress. HEENT: Normocephalic, atraumatic, PERRL, EOMI, small stye noted to the right eye, drainage or erythema noted at this time RESPIRATORY: Lungs clear, normal breath sounds, no respiratory distress. CHEST: No accessory muscle use, no retractions CV: Regular rate, rhythm, no edema, no murmur, No: JVD GI: Soft, non-tender, bowels sounds present, no rebound, guarding, or rigidity BACK: No CVA tenderness, or swelling MUSCULOSKELETAL No deformities, no edema SKIN: Warm and dry, no rash NEURO: Oriented x4, No motor or sensory deficit PSYCH: Normal mood and affect, no agitation Progress Results/Orders Results/Orders Vital Signs 01/21/25 13:03 Temp 98.7 Pulse 65 Resp 18 B/P (MAP) 152/67 Pulse Ox 94 O2 Flow Rate 0 Medical Decision Making Findings Patient presented to the emergency department for evaluation of his diet to the right eye. Patient was evaluated under Wood's lamp with a fluorescein strip. No abrasions or any abnormalities noted. Stye was noted to the right lateral corner of the eye. Patient will follow up with primary care provider and ophthalmology. Recommended warm compresses keeping the eye clean avoiding sunlight until the stye has healed. Will return to the emergency department if he has any worsening of his current symptoms or any additional concerning symptoms i.e. vision changes swelling redness fevers any additional concerning symptoms that we discussed here today. Departure Disposition: HOME / SELF CARE / HOMELESS Impression: Primary Impression: Stye Additional Impressions: Hordeolum externum (stye) History of hordeolum Condition: Stable Discharge Instructions: Stye Additional Instructions: Patient presented to the emergency department for evaluation of his diet to the right eye. Patient was evaluated under Wood's lamp with a fluorescein strip. No abrasions or any abnormalities noted. Stye was noted to the right lateral corner of the eye. Patient will follow up with primary care provider and ophthalmology. Recommended warm compresses keeping the eye clean avoiding sunlight until the stye has healed. Will return to the emergency department if he has any worsening of his current symptoms or any additional concerning symptoms i.e. vision changes swelling redness fevers any additional concerning symptoms that we discussed here today. Referrals: NO PRIMARY CARE PROVIDER (PCP) Education Educated: Patient Educated regarding: diagnosis, prognosis, need for follow up Signature Scribe Signature: A Attestation: Scribed for Lonnie Hand by DACIA Abarca . 01/21/25 17:20 LONNIE HAND Jan 21, 2025 17:20
[2025-01-21 17:29] VITALS: TEMP 98.7
== END 2025-01-21 17:30 | disposition home or self-care (01) ==
LOC: ER 12:56
DX: H00.013 Hordeolum externum right eye, unspecified eyelid (principal); I10 Essential (primary) hypertension
CPT/HCPCS: 99283